=== PATIENT | male | born 1935 | race Caucasian/White ===

== ENCOUNTER 2018-03-27 06:21 | Day surgery (SDC) | payer MEDICARE, OTHER ==
[2018-03-26 14:54] VITALS: BMI 23.0
[~2018-03-27 06:21] MED LIST: CHONDROITIN SU A/HYALUR SOD 1 KIT IO ONE; EPINEPHrine/PF 1 MG/1 ML (1:1,000) AMPULE SQ ONE; LIDOCAINE HCL 1% PRESERVATIVE FREE - 30ML VIAL IO ONE; TETRACAINE 0.5% OPHTH SOLN 2 ML BOTTLE TP ONE; TRYPAN BLUE 0.5 ML DISP.SYRIN IO ONE
[2018-03-27] MEDS ORDERED: TROPICAMIDE 1% OPHTH SOLN 15 ML BOTTLE ONE (06:55)
[2018-03-27] MEDS ORDERED: PHENYLEPHRINE 2.5% OPHTH SOLN 15 ML BOTTLE ONE (06:55)
[2018-03-27] MEDS ORDERED: FLURBIPROFEN 0.03% OPHTH SOLN 2.5 ML BOTTLE ONE (06:55)
[2018-03-27] MEDS ORDERED: CYCLOPENTOLATE HCL 1% OPHTH SOLN 2 ML BOTTLE ONE (06:55)
[2018-03-27] MEDS ORDERED: CIPROFLOXACIN HCL 0.3% OPHTH 2.5ML BOTTLE ONE (06:58)
[2018-03-27] MEDS ORDERED: PHENYLEPHRINE 2.5% OPHTH SOLN 15 ML BOTTLE OD ONE ×3 (07:00→07:10)
[2018-03-27] MEDS ORDERED: CIPROFLOXACIN HCL 0.3% OPHTH 2.5ML BOTTLE OD ONE ×3 (07:00→07:10)
[2018-03-27] MEDS ORDERED: FLURBIPROFEN 0.03% OPHTH SOLN 2.5 ML BOTTLE OD ONE ×3 (07:00→07:10)
[2018-03-27] MEDS ORDERED: CYCLOPENTOLATE HCL 1% OPHTH SOLN 2 ML BOTTLE OD ONE ×3 (07:00→07:10)
[2018-03-27] MEDS ORDERED: TROPICAMIDE 1% OPHTH SOLN 15 ML BOTTLE OD ONE ×3 (07:00→07:10)
[2018-03-27] MEDS ORDERED: CHONDROITIN SU A/HYALUR SOD 1 KIT ONE (07:03)
[2018-03-27 07:07] VITALS: TEMP 97.8
[2018-03-27] MEDS ORDERED: EPINEPHrine/PF 1 MG/1 ML (1:1,000) AMPULE ONE (07:22)
[2018-03-27] MEDS ORDERED: VANCOMYCIN 500 MG VIAL (RESTRICTED TO ID ONLY) ONE (07:22)
[2018-03-27] MEDS ORDERED: LIDOCAINE HCL/PF 1% SDV 5ML VIAL ONE (07:22)
[2018-03-27] MEDS ORDERED: TRYPAN BLUE 0.5 ML DISP.SYRIN ONE (07:22)
[2018-03-27] MEDS ORDERED: WATER FOR INJ,STERILE 10 ML ONE (07:22)
[2018-03-27] MEDS ORDERED: BSS (NA/CA/MG/K) BALANCED SALT SOLUTION OPHTH SOLN 15 ML BOTTLE ONE (07:22)
[2018-03-27] MEDS ORDERED: TETRACAINE 0.5% OPHTH SOLN 2 ML BOTTLE ONE (07:23)
[2018-03-27] MEDS ORDERED: POVIDONE-IODINE 5% OPHTHALMIC PREP 30 ML SOLUTION ONE (07:23)
[2018-03-27] MEDS ORDERED: ACETAMINOPHEN 325 MG TABLET (FP) PO PRN (07:51)
[2018-03-27] MEDS ORDERED: FLURBIPROFEN 0.03% OPHTH SOLN 2.5 ML BOTTLE OP SCH (08:00)
[2018-03-27] MEDS ORDERED: CYCLOPENTOLATE HCL 1% OPHTH SOLN 2 ML BOTTLE OP SCH (08:00)
[2018-03-27] MEDS ORDERED: PHENYLEPHRINE/KETOROLAC 4 ML VIAL IO ONE ×2 (08:00→08:36)
[2018-03-27] MEDS ORDERED: TROPICAMIDE 1% OPHTH SOLN 15 ML BOTTLE OP SCH (08:00)
[2018-03-27] MEDS ORDERED: OFLOXACIN 0.3% OPHTHALMIC SOLUTION 5 ML BOTTLE OP SCH (08:00)
[2018-03-27] MEDS ORDERED: PHENYLEPHRINE 2.5% OPHTH SOLN 15 ML BOTTLE OP SCH (08:00)
[2018-03-27] MEDS ORDERED: TETRACAINE 0.5% OPHTH SOLN 2 ML BOTTLE TP ONE (08:15)
[2018-03-27] MEDS ORDERED: MIDAZOLAM HCL 2 MG/2 ML SINGLE DOSE VIAL ONE (08:16)
[2018-03-27] MEDS ORDERED: CHONDROITIN SU A/HYALUR SOD 1 KIT IO ONE (08:18)
[2018-03-27] MEDS ORDERED: LIDOCAINE HCL 1% PRESERVATIVE FREE - 30ML VIAL IO ONE (08:18)
[2018-03-27] MEDS ORDERED: TRYPAN BLUE 0.5 ML DISP.SYRIN IO ONE (08:19)
[2018-03-27] MEDS ORDERED: MANNITOL 25% 12.5 GM/50 ML VIAL IVPB ONE (08:29)
[2018-03-27] MEDS ORDERED: EPINEPHrine/PF 1 MG/1 ML (1:1,000) AMPULE SQ ONE (08:36)
--- NOTE | 2018-03-27 10:14 | OP ---
DATE OF OPERATION: 03/27/2018 PREOPERATIVE DIAGNOSIS: Cataract, right eye. POSTOPERATIVE DIAGNOSES: 1. Cataract, right eye. 2. 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 DESCRIPTION OF PROCEDURE: Patient was brought into the operating room and correctly identified along with the operative site as well as correct intraocular lens power. He was then prepped and draped in the usual sterile fashion including 5% Betadine solution in the conjunctival sac and an eyelid drape. An eyelid speculum was then placed into the right eye. A paracentesis port was created, and 0.5 mL of lidocaine 1% preservative free was injected intracamerally. Beneath an air bubble, the capsule was then stained with trypan blue and flushed with the remaining 0.5 mL of lidocaine 1%. Viscoelastic was placed through the paracentesis to inflate the anterior chamber; however, Viscoelastic was immediately noted to reflux from the paracentesis port. The eye was palpated with a cannula, and intraocular pressure was noted to be extremely elevated. An attempt was made to lift the iris in an attempt to decrease the pressure; however, this did not work. The Viscoelastic was then manually removed using the cannula. Intravenous mannitol was given as well. The was then broken. Decision then was made to place iris hooks. Five additional paracentesis ports were created, and iris hooks were placed to dilate the pupil mechanically. A temporal clear corneal wound was created. The anterior chamber was noted to be very shallow; however, the Viscoelastic was noted to retain in the eye. A continuous circular capsulorrhexis was successfully performed and the nucleus gently dissected with care being not to place too much fluid within the eye. The nucleus was then removed with phacoemulsification via the [id number] approach and remaining cortical material irrigated and aspirated from the eye. Viscoelastic was injected to inflate the anterior chamber and capsular bag. The lens was injected in the capsular bag. The iris hooks were then removed from the eye, and the incisions were stromal hydrated with BSS. The Viscoelastic was then irrigated and aspirated from the eye without complication. At the end of the procedure, the wounds were tested, and there was a small amount of leakage noted at the temporal clear cornea wound. A single 10-0 nylon suture was placed. Again the wounds were checked and the anterior chamber re-formed. This time no leak was noted. The anterior chamber was noted to be stable. The intraocular lens was well centered and covered by the anterior chamber border. Topical vancomycin given, eye patched and shielded, and the patient discharged from the operating room in stable condition. ALTON JIN M.D. [id number]
[2018-03-27 10:54] VITALS: BP 115/57; PULSE 73
== END 2018-03-27 10:25 | disposition home or self-care (01) ==
LOC: JASU-SURG 06:21
PROVIDERS: ATTEND Ophthalmology
PROC: 08RJ3JZ Replacement of Right Lens with Synthetic Substitute, Percutaneous Approach (ICD-10-PCS; principal; 2018-03-27 08:00)
DX: H26.9 Unspecified cataract (principal); H21.81 Floppy iris syndrome; H40.20X0 Unspecified primary angle-closure glaucoma, stage unspecified; E11.9 Type 2 diabetes mellitus without complications; Z79.84 Long term (current) use of oral hypoglycemic drugs
CPT/HCPCS: C9447

== ENCOUNTER 2018-04-17 06:23 | Day surgery (SDC) | payer MEDICARE, OTHER ==
[2018-04-12 11:41] VITALS: BMI 23.0
[~2018-04-17 06:23] MED LIST changes: +ACETAMINOPHEN 325 MG TABLET (FP) PO PRN; -CHONDROITIN SU A/HYALUR SOD 1 KIT IO ONE; +FLURBIPROFEN 0.03% OPHTH SOLN 2.5 ML BOTTLE OP SCH; -LIDOCAINE HCL 1% PRESERVATIVE FREE - 30ML VIAL IO ONE; -TETRACAINE 0.5% OPHTH SOLN 2 ML BOTTLE TP ONE; -TRYPAN BLUE 0.5 ML DISP.SYRIN IO ONE
[2018-04-17] MEDS ORDERED: PHENYLEPHRINE 2.5% OPHTH SOLN 15 ML BOTTLE ONE (06:52)
[2018-04-17] MEDS ORDERED: OFLOXACIN 0.3% OPHTHALMIC SOLUTION 5 ML BOTTLE ONE (06:52)
[2018-04-17] MEDS ORDERED: CYCLOPENTOLATE HCL 1% OPHTH SOLN 2 ML BOTTLE ONE (06:52)
[2018-04-17] MEDS ORDERED: TROPICAMIDE 1% OPHTH SOLN 15 ML BOTTLE ONE (06:53)
[2018-04-17 07:04] VITALS: TEMP 98
[2018-04-17] MEDS ORDERED: LIDOCAINE HCL/PF 1% SDV 5ML VIAL ONE (07:19)
[2018-04-17] MEDS ORDERED: TETRACAINE 0.5% OPHTH SOLN 2 ML BOTTLE ONE (07:19)
[2018-04-17] MEDS ORDERED: EPINEPHrine/PF 1 MG/1 ML (1:1,000) AMPULE ONE (07:19)
[2018-04-17] MEDS ORDERED: VANCOMYCIN 500 MG VIAL (RESTRICTED TO ID ONLY) ONE (07:19)
[2018-04-17] MEDS ORDERED: BSS (NA/CA/MG/K) BALANCED SALT SOLUTION OPHTH SOLN 15 ML BOTTLE ONE (07:19)
[2018-04-17] MEDS ORDERED: TRYPAN BLUE 0.5 ML DISP.SYRIN ONE (07:20)
[2018-04-17] MEDS ORDERED: WATER FOR INJ,STERILE 10 ML ONE (07:20)
[2018-04-17] MEDS ORDERED: POVIDONE-IODINE 5% OPHTHALMIC PREP 30 ML SOLUTION ONE (07:20)
[2018-04-17] MEDS: OFLOXACIN 0.3% OPHTHALMIC SOLUTION 5 ML BOTTLE OP SCH ×3 (07:30→07:40)
[2018-04-17] MEDS: TROPICAMIDE 1% OPHTH SOLN 15 ML BOTTLE OP SCH ×3 (07:30→07:40)
[2018-04-17] MEDS: PHENYLEPHRINE 2.5% OPHTH SOLN 15 ML BOTTLE OP SCH ×3 (07:30→07:40)
[2018-04-17] MEDS: CYCLOPENTOLATE HCL 1% OPHTH SOLN 2 ML BOTTLE OP SCH ×3 (07:30→07:40)
[2018-04-17] MEDS ORDERED: MIDAZOLAM HCL 2 MG/2 ML SINGLE DOSE VIAL ONE (07:56)
[2018-04-17] MEDS ORDERED: MANNITOL 25% 12.5 GM/50 ML VIAL IVPB ONE (07:56)
[2018-04-17] MEDS ORDERED: KETAMINE HCL 200 MG/20 ML VIAL ONE (07:56)
[2018-04-17] MEDS ORDERED: TETRACAINE 0.5% HCL 0.6ML DROPPER.BOTTLE OS ONE (08:06)
[2018-04-17] MEDS ORDERED: POVIDONE-IODINE 5% OPHTHALMIC PREP 30 ML SOLUTION OS ONE (08:10)
[2018-04-17] MEDS ORDERED: TRYPAN BLUE 0.5 ML DISP.SYRIN IO ONE (08:18)
[2018-04-17] MEDS ORDERED: CHONDROITIN SU A/HYALUR SOD 1 KIT IO ONE (08:18)
[2018-04-17] MEDS ORDERED: BSS (NA/CA/MG/K) BALANCED SALT SOLUTION OPHTH SOLN 15 ML BOTTLE OS ONE (08:18)
[2018-04-17] MEDS ORDERED: LIDOCAINE HCL 1% PRESERVATIVE FREE - 30ML VIAL IO ONE (08:18)
[2018-04-17] MEDS ORDERED: EPINEPHrine/PF 1 MG/1 ML (1:1,000) AMPULE SQ ONE (08:38)
--- NOTE | 2018-04-17 10:04 | OP ---
DATE OF OPERATION: 04/17/2018 SURGEON: Alton Jin M.D. PREOPERATIVE DIAGNOSIS: Cataract, left eye. ASSOCIATED DIAGNOSES: 1. Persistent miosis. 2. Intraoperative floppy iris syndrome. OPERATION: Phacoemulsification of left cataract with capsular staining with Trypan blue and iris hooks. Lens used [id number], 25.0 diopter power, serial No. [id number]. ANESTHESIA: Topical MAC. COMPLICATIONS: None. PROCEDURE: The patient was brought into the operating room and correctly identified along with the operative site as well as correct intraocular lens chaves. He was then prepped and draped in the usual sterile fashion including 5% Betadine solution in the conjunctival sac and an eyelid drape. An eyelid speculum was then placed into the left eye. The eye was inspected, and a 4.5-mm pupil was noted. A paracentesis port was created and intracameral lidocaine 1% 0.5 mL was injected intracamerally. The capsule was then stained with Trypan blue by injecting Trypan blue directly into the anterior chamber. This was then irrigated with the remainder 0.5 mL of the preservative-free 1% lidocaine. Viscoelastic was injected to inflate the anterior chamber. The pupil was not noted to expand significantly. Four additional paracentesis ports were created, and the temporal clear corneal wound created. Iris hooks were placed to expand the pupil. The capsule was further stained beneath the viscoelastic with Trypan blue. A continuous circular capsulorrhexis was performed. The nucleus was hydro-dissected with BSS and removed with phacoemulsification. The remaining cortical material was irrigated and aspirated from the eye. The viscoelastic was injected to inflate the capsular bag. The lens was injected into the capsular bag. The iris hooks were then removed from the eye without complication, and the wounds were stromal hydrated with BSS. Viscoelastic was then irrigated and aspirated from the eye. Without the hooks, iris was noted to flop. At the end of the procedure, all wounds were tested and found to be watertight. No suture was placed. The intraocular lens was noted to be well centered and covered by the anterior capsular border and to chamber deep. Topical Vancomycin given, the eye patched and shielded, and the patient was discharged from the operating room in a stable condition. ALTON JIN M.D. [id number]
[2018-04-17 10:10] VITALS: BP 109/55; PULSE 80
== END 2018-04-17 09:40 | disposition home or self-care (01) ==
LOC: JASU-SURG 06:23
PROVIDERS: ATTEND Ophthalmology
PROC: 08RK3JZ Replacement of Left Lens with Synthetic Substitute, Percutaneous Approach (ICD-10-PCS; principal; 2018-04-17 08:00)
DX: H26.9 Unspecified cataract (principal); H57.03 Miosis; J44.9 Chronic obstructive pulmonary disease, unspecified; E11.9 Type 2 diabetes mellitus without complications; Z79.84 Long term (current) use of oral hypoglycemic drugs
CPT/HCPCS: 82962